=== PATIENT | female | born 1965 | race Caucasian/White ===

== ENCOUNTER 2023-12-12 11:15 | Emergency (ER) | payer BC ==
[~2023-12-12] VITALS: Ht 165.1 cm; Wt 72.6 kg
[2023-12-12 11:26] VITALS: BP_SYST 82; PULSE 80; TEMP 98.3; O2SAT 98
[2023-12-12 12:06] LABS: BASOPHILS % (AUTO) 0.7 % (0.0-2.0); EOSINOPHILS # (AUTO) 0.2 K/uL (0.0-0.4); EOSINOPHILS % (AUTO) 3.7 % (0.0-4.0); HEMATOCRIT 29.9 % (36-48); HEMOGLOBIN 9.4 g/dL (12.0-16.0); LYMPHOCYTES # (AUTO) 1.5 K/uL (1.0-5.5); LYMPHOCYTES % (AUTO) 28.7 % (20.5-51.5); MEAN CORPUSCULAR HEMOGLOBIN 22 pg (27-31); MEAN CORPUSCULAR HGB CONC 31 % (32-36); MEAN CORPUSCULAR VOLUME 69 fL (79.0-98.0); MONOCYTES # (AUTO) 0.4 K/uL (0.0-1.0); MONOCYTES % (AUTO) 8.7 % (1.7-9.3); NEUTROPHILS % (AUTO) 58.2 % (40.0-70.0); PLATELET COUNT (AUTO) 324 K/uL (130-430); RED BLOOD CELL COUNT(AUTO) 4.34 MIL/uL (4.2-6.2); RED CELL DISTRIBUTION WIDTH 19.8 % (9.0-15.0); WHITE BLOOD COUNT (AUTO) 5.1 K/uL (4.8-10.8)
[2023-12-12 12:32] LABS: ANION GAP 6 (5-15); CALCIUM 8.5 mg/dL (8.4-11.0); CARBON DIOXIDE 28 mmol/L (23-29); CHLORIDE 105 mmol/L (98-107); CREATININE 0.54 mg/dL (0.55-1.30); GFR AFRICAN AMERICAN 150 mL/min (>90); GFR NON AFRICAN-AMERICAN 124 mL/min (>90); GLUCOSE 80 mg/dL (74-106); POTASSIUM 4.4 mmol/L (3.5-5.1); SODIUM SERUM 139 mmol/L (136-145); UREA NITROGEN, BLOOD 8 mg/dL (8-21)
[2023-12-12 12:33] LABS: ANISOCYTOSIS 1+; HYPOCHROMASIA 1+
[2023-12-12 12:34] LABS: OVALOCYTES FEW; TARGET CELLS RARE
[2023-12-12 13:18] VITALS: BP_SYST 96; PULSE 80; TEMP 98.3; O2SAT 98
== END 2023-12-12 13:17 | disposition home or self-care (01) ==
LOC: SED 11:15
DX: D64.9 Anemia, unspecified (principal); R53.1 Weakness; R42 Dizziness and giddiness
CPT/HCPCS: 36415; 80048; 83880; 84484; 85025; 86886; 86900; 86901; 93005; 99284